=== PATIENT | male | born 1990 | race Caucasian/White ===

== ENCOUNTER 2019-06-29 15:37 | Emergency (ER) | payer SELFPAY ==
[~2019-06-29] VITALS: Ht 182.9 cm; Wt 110.2 kg
[2019-06-29 16:12] VITALS: BP 128/77
== END 2019-06-29 17:10 | disposition home or self-care (01) ==
LOC: ER 15:37
DX: L08.9 Local infection of the skin and subcutaneous tissue, unspecified (principal); F17.210 Nicotine dependence, cigarettes, uncomplicated